=== PATIENT | female | born 1965 | race Caucasian/White ===

== ENCOUNTER 2021-07-29 19:45 | Emergency (ER) | payer OTHER, SELFPAY ==
--- NOTE | ~2021-07-29 | XR_ITS ---
XR foot LT min 3V DATE: 07/29/2021 20:41 INDICATION: Left foot pain for 2 hours. No known injury. TECHNIQUE: 4 views COMPARISON: None FINDINGS: There is minimal plantar calcaneal enthesopathy. There is mild osteoarthritic arthritis at the first metatarsophalangeal joint. No fracture, dislocation, periosteal reaction or bone destruction. IMPRESSION: Minimal plantar calcaneal enthesopathy Mild osteoarthritis at first metatarsophalangeal joint Reviewed, dictated and finalized at location A.
[2021-07-29 19:56] VITALS: BP 177/94; PULSE 100; RESP 20; TEMP 36.5; O2SAT 98
--- NOTE | 2021-07-29 20:50 | ED.LOWEXIN ---
HPI - Extremity Injury (Lower) General Chief Complaint: Extremity Injury, Lower <Micaela Li PA-C - Last Filed: 07/29/21 21:33> Stated Complaint: left foot pain <Micaela Li PA-C - Last Filed: 07/29/21 21:33> Time Seen by Provider: 07/29/21 20:42 <Micaela Li PA-C - Last Filed: 07/29/21 21:33> Source: patient <SARAH Jimenez Last Filed: 07/29/21 21:33> Mode of arrival: ambulatory <Micaela Li PA-C - Last Filed: 07/29/21 21:33> Limitations: no limitations <Micaela Li PA-C - Last Filed: 07/29/21 21:33> History of Present Illness HPI Narrative: This is a 56 year old female that presents to the ER for left foot pain over the last couple of hours. No known injury or trauma. The pain is on the dorsal surface of the foot. Worse with movement and weight bearing, relieved with rest. Denies decreased ROM, erythema, edema or numbness. <Micaela Li PA-C - Last Filed: 07/29/21 21:33> Related Data Home Medications: Home Medications Medication Instructions Recorded Confirmed ascorbate calcium (vitamin C) 500 500 mg PO DAILY 01/18/21 01/18/21 mg tablet estradiol 0.05 mg/24 hr weekly 1 patch TRANSDERMAL WEEKLY 01/18/21 01/18/21 transdermal patch progesterone micronized 200 mg 200 mg PO QHS 01/18/21 01/18/21 capsule spironolactone 100 mg tablet 150 mg PO DAILY tablet 01/18/21 01/18/21 <Micaela Li PA-C - Last Filed: 07/29/21 21:33> Allergies/Adverse Reactions: Allergies Allergy/AdvReac Type Severity Reaction Status Date / Time No Known Allergies Allergy Unknown Verified 01/18/21 15:49 <SARAH Jimenez Last Filed: 07/29/21 21:33> Review of Systems Review of Systems: CONSTITUTIONAL: Denies fever SKIN: Denies rash MUSCULOSKELETAL: Reports joint pain, and myalgia. NEUROLOGIC: Denies numbness <Micaela Li PA-C - Last Filed: 07/29/21 21:33> All systems reviewed & are unremarkable except as noted in HPI and below <Micaela Li PA-C - Last Filed: 07/29/21 21:33> [facility] Past Medical History Medical History: Medical History Elbow fracture Osteoarthritis of left knee <Micaela Li PA-C - Last Filed: 07/29/21 21:33> Surgical History Surgical History: Surgical History History of endometrial ablation (~2004) Status post ORIF of fracture of ankle (~1979) <SARAH Jimenez Last Filed: 07/29/21 21:33> Family History Family History: Family History Mother Patient's mother is in good health Family history of rheumatoid arthritis Father Patient's father is in good health Malignant neoplasm of prostate, Onset Age: 69 Family history of diabetes mellitus in first degree relative Acute myocardial infarction Family history of heart disease in male family member before age 55 Grandparent Family history of malignant neoplasm of thyroid Other Diabetes mellitus Family history of allergic disorder Family history of cardiovascular disease Hypertension <Micaela Li PA-C - Last Filed: 07/29/21 21:33> Social History Social History: Social History Smoking status: Former smoker Smoking end date: 11/11/00 Alcohol intake: current Substance use: never Substance use type: does not use Additional living arrangements comments: Gender identity (if verbalized by the patient): Female Sexual Orientation (if Verbalized by the Patient): Straight or Heterosexual <ASRAH Jimenez Last Filed: 07/29/21 21:33> Exam Narrative: GENERAL: Well-appearing, well-nourished, and in no acute distress. HEAD: Normocephalic, atraumatic. EYES: EOMI. EXTREMITIES: Normal range of motion. No edema, erythema or warmth. Normal DP pu
[2021-07-29] MEDS: ACETAMINOPHEN 500 MG TABLET 1000 MG PO (21:29)
== END 2021-07-29 21:51 | disposition home or self-care (01) ==
PROVIDERS: Emergency Provider General Practice; PCP Nurse Practitioner Adult Health
DX: M79.672 Pain in left foot (principal); M17.12 Unilateral primary osteoarthritis, left knee; Z87.891 Personal history of nicotine dependence; M19.072 Primary osteoarthritis, left ankle and foot
CPT/HCPCS: 73630; 99283; A9270

== ENCOUNTER 2024-08-28 16:35 | Outpatient (CLI) | payer OTHER, SELFPAY ==
[2024-08-28 17:13] LABS: Anion Gap 8 mmol/L (4-12); Blood Urea Nitrogen 15 mg/dL (7-17); Calcium 9.9 mg/dL (8.4-10.2); Carbon Dioxide 28 mmol/L (22-30); Chloride 100 mmol/L (98-107); Estimated Glomerular Filt Rate > 60; Glucose 100 mg/dL (65-110); Potassium 3.8 mmol/L (3.4-5.0); Sodium 136 mmol/L (137-145)
[2024-08-28 17:14] LABS: Hemoglobin A1C 5.6 % (<5.7)
[2024-08-28 17:47] LABS: Free T4 Free Thyroxine 1.05 ng/mL (0.78-2.19)
== END 2024-08-28 16:36 | disposition home or self-care (01) ==
LOC: ANHLAB 16:37
PROVIDERS: PCP Clinical Nurse Specialist; Referring Provider Internal Medicine Endocrinology, Diabetes & Metabolism; Visit Provider Clinical Nurse Specialist
DX: R73.9 Hyperglycemia, unspecified (principal); E87.5 Hyperkalemia; R76.8 Other specified abnormal immunological findings in serum
CPT/HCPCS: 36415; 80048; 83036; 84439; 84443

== ENCOUNTER 2024-09-21 12:13 | Outpatient (CLI) | payer OTHER, SELFPAY ==
--- NOTE | ~2024-09-21 | US_ITS ---
EXAMINATION: US thyroid DATE: 09/21/2024 12:34 INDICATION: Other specified abnormal immunological findings. TECHNIQUE: Multiple ultrasound images of the thyroid were obtained. COMPARISON: None. FINDINGS: The right thyroid lobe measures 5.8 x 1.7 x 1.8 cm. The left thyroid lobe measures 5.2 x 1.5 x 1.6 c m. In the right thyroid lobe, there is 11 mm solid, hypoechoic, wider than tall nodule with smooth m argin without echogenic foci (TI-RADS TR4). In the right thyroid lobe, there is a 4 mm nodule. IMPRESSION: 1. Small thyroid nodules. Thyroid ultrasound is recommended in one year. Reviewed, dictated and finalized at location A. [employer]
== END 2024-09-21 12:14 | disposition home or self-care (01) ==
PROVIDERS: PCP Clinical Nurse Specialist; Visit Provider Internal Medicine Endocrinology, Diabetes & Metabolism
DX: R76.8 Other specified abnormal immunological findings in serum (principal); E04.2 Nontoxic multinodular goiter
CPT/HCPCS: 76536